=== PATIENT | female | born 1965 | race Caucasian/White ===

== ENCOUNTER → 2016-06-13 | Outpatient (CLI) | payer OTHER ==
[2016-06-13 11:04] LABS: Basophils % (A) 1 %; CH 26.7; CHCM 32.2; Eosinophils # (A) 0.2 k/uL (0-0.7); Eosinophils % (A) 3 %; HCT 43.9 % (34.0-46.0); HDW 2.42; HGB 14.2 gm/dL (11.4-16.0); Luc # (Auto) 0.19; Luc % (Auto) 2; Lymphocytes # (A) 1.4 k/uL (1.0-4.8); Lymphocytes % (A) 17 %; MCH 26.9 pg (25.0-35.0); MCHC 32.3 g/dL (31.0-37.0); MCV 83.3 fL (80.0-100.0); Mean Platelet Volume 8.9; Monocytes # (A) 0.5 k/uL (0-1.0); Monocytes % (A) 6 %; Neutrophils # (A) 5.6 k/uL (1.3-7.7); Neutrophils % (A) 71 %; RBC 5.27 m/uL (3.80-5.40); RDW 13.7 % (11.5-15.5); WBC 7.9 k/uL (3.8-10.6)
== END | disposition home or self-care (01) ==
LOC: LABPAT 10:30
PROVIDERS: ATTEND Anesthesiology
DX: Z01.818 Encounter for other preprocedural examination (principal); E66.01 Morbid (severe) obesity due to excess calories
CPT/HCPCS: 85025; 93005

== ENCOUNTER 2016-06-18 10:58 | Inpatient (IN) | payer OTHER ==
[~2016-06-18 10:58] MED LIST: DEXAMETHASONE SOD PHOSPHATE 10 MG/ML 1 ML VIAL IV ONE; ENOXAPARIN 40 MG/0.4 ML SYRINGE SQ ONE; LIDOCAINE 1% 20 ML VIAL (10MG/ML) FOR IV START INTRADERMA PRN; ONDANSETRON 4 MG/2 ML VIAL IVP ONE; SCOPOLAMINE 1.5MG/72HR PATCH TRANSDERM ONE; ceFAZolin 3 GM in SODIUM CHLORIDE 0.9% 100 ML IVPB ONE
--- NOTE | 2016-06-18 11:12 | P.GSHP ---
History of Present Illness H&P Date: 06/18/16 Chief Complaint: Morbid obesity Patient here today for elective sleeve gastrectomy. She has investigated both lap band and gastric bypass. She has completed her 6 month weight loss supervised program with her primary care physician. She had a previous endoscopy in January. During that upper endoscopy a very small hiatal hernia was seen. Denies dysphagia. No history of DVT in the past. Past Medical History Past Medical History: GERD/Reflux, Hyperlipidemia, Hypertension, Respiratory Disorder Additional Past Medical History / Comment(s): HX OCC ARRYTHMIA IN PAST, NO PROBLEMS FOUND. OCC BRONCHITIS, SEASONAL ALLERGIES. History of Any Multi-Drug Resistant Organisms: None Reported Past Surgical History: Cholecystectomy Additional Past Surgical History / Comment(s): CHOLECYSTECTOMY 1997. SINUS SURGERY D/T DEVIATED SEPTUM 2011. EGD. Past Anesthesia/Blood Transfusion Reactions: No Reported Reaction Past Psychological History: No Psychological Hx Reported Smoking Status: Never smoker Past Alcohol Use History: None Reported Past Drug Use History: None Reported - Past Family History Mother Family Medical History: Blood Disorder, CVA/TIA, Diabetes Mellitus, Hypertension Additional Family Medical History / Comment(s): TYPE 2 DM RESOLVED WITH RNY BYPASS, ATYPICAL HEMOLYTIC UREMIC SYNDROME, Father Family Medical History: Coronary Artery Disease (CAD) Additional Family Medical History / Comment(s): CARDIAC BYPASS IN 2013 (??) Medications and Allergies Home Medications Medication Instructions Recorded Confirmed Type Levonorgestrel-Ethin Estradiol 1 tab PO DAILY 12/13/15 06/11/16 History [Levora-28 Tablet] Loratadine [Claritin] 10 mg PO DAILY 12/13/15 06/11/16 History Metoprolol Succinate [Toprol XL] 50 mg PO DAILY 12/13/15 06/11/16 History Montelukast [Singulair] 10 mg PO HS 12/13/15 06/11/16 History Omeprazole [PriLOSEC] 40 mg PO DAILY 02/01/16 06/11/16 History Calcium 300, Vitamin D3 750, 2 cap PO BID 06/11/16 History Magnesium 60 Mg Multivitamins, Thera [Multivitamin] 1 tab PO DAILY 06/11/16 06/11/16 History Allergies Allergy/AdvReac Type Severity Reaction Status Date / Time levofloxacin [From Levaquin] Allergy Rash/Hives Verified 06/11/16 17:33 Surgical - Exam Physical exam: General: Well-developed, well-nourished HEENT: Normocephalic, sclerae nonicteric Abdomen: Nontender, nondistended Extremities: No edema Neuro: Alert and oriented Assessment and Plan (1) Morbid exogenous obesity Narrative/Plan: We'll proceed with sleeve gastrectomy at this time. Risks of bleeding, infection, stenosis, leak, abscess, fistula formation, chronic reflux, or weight loss, dysphagia, vomiting, MN, PE, DVT, and were discussed. She understands and wishes to proceed. Status: Acute
[2016-06-18] MEDS: LACTATED RINGERS 1,000 ML IV SCH ×2 (11:46→12:11)
[2016-06-18] MEDS ORDERED: METHYLENE BLUE 15 MG in SODIUM CHLORIDE 0.9% 500 ML IRRIGATION ONE (12:05)
[2016-06-18 12:12] LABS: ALT 48 U/L (9-52); AST 34 U/L (14-36); Alkaline Phosphatase 136 U/L (38-126); Anion Gap 8 mmol/L; Blood Urea Nitrogen 9 mg/dL (7-17); Calcium 9.8 mg/dL (8.4-10.2); Carbon Dioxide 24 mmol/L (22-30); Chloride 105 mmol/L (98-107); Glucose 111 mg/dL (74-99); Non-African American GFR(MDRD) >60 (>60 ml/min/1.73 sqM); Potassium 4.5 mmol/L (3.5-5.1); Sodium 137 mmol/L (137-145); Total Bilirubin 0.6 mg/dL (0.2-1.3); Total Protein 7.8 g/dL (6.3-8.2)
[2016-06-18] MEDS ORDERED: NEOSTIGMINE 1 MG/ML 10 ML VIAL ONE (12:16)
[2016-06-18] MEDS ORDERED: ePHEDrine 50 MG/ML 1 ML AMP ONE (12:16)
[2016-06-18] MEDS ORDERED: PHENYLEPHRINE-0.9% NACL SYG 1 MG/10 ML SYRINGE ONE (12:16)
[2016-06-18] MEDS ORDERED: SUCCINYLCHOLINE CHLORIDE 100 MG/5 ML SYR IV ONE (12:16)
[2016-06-18] MEDS ORDERED: ROCURONIUM BROMIDE 10 MG/ML 10 ML VIAL IV ONE (12:16)
[2016-06-18] MEDS ORDERED: LIDOCAINE 1% INJ 10MG/ML (20 ML MDV) ONE (12:16)
[2016-06-18] MEDS ORDERED: fentaNYL (PF) 50 MCG/ML 2 ML AMP ONE (12:16)
[2016-06-18] MEDS ORDERED: MIDAZOLAM 2 MG/2 ML VIAL ONE (12:16)
[2016-06-18] MEDS ORDERED: GLYCOPYRROLATE 0.2 MG/ML 2 ML VIAL ONE (12:16)
[2016-06-18] MEDS ORDERED: PROPOFOL 10 MG/ML 20 ML VIAL IV ONE (12:16)
[2016-06-18] MEDS ORDERED: BUPIVACAIN-EPI 0.25%-1:200,000 30 ML VIAL SQ ONE ×2 (12:56)
[2016-06-18] MEDS ORDERED: LACTATED RINGERS 1,000 ML IV ONE ×2 (13:27)
[2016-06-18] MEDS ORDERED: HYOSCYAMINE ORAL DROPS 1.875 MG/15 ML BOTTLE PO PRN (14:35)
[2016-06-18] MEDS ORDERED: ACETAMINOPHEN IV (For NPO) 1,000 MG in EMPTY BAG 1 BAG IVPB ONE (14:35)
[2016-06-18] MEDS ORDERED: SIMETHICONE 40 MG/0.6 ML DROPS 2,000 MG/30 ML BOTTLE PO PRN (14:35)
[2016-06-18] MEDS ORDERED: diphenhydrAMINE 50 MG/ML 1 ML VIAL IVP PRN (14:35)
[2016-06-18] MEDS ORDERED: NALOXONE 0.4 MG/ML 1 ML VIAL IV PRN (14:35)
--- NOTE | 2016-06-18 14:41 | P.PCN ---
Date of Procedure: 06/18/16 Procedure(s) Performed: PREOPERATIVE DIAGNOSIS: Morbid obesity, hypertension, asthma, GERD POSTOPERATIVE DIAGNOSIS: Same PROCEDURE: Laparoscopic sleeve gastrectomy with repair hiatal hernia SURGEON: Perfecto EBL: Minimal ANESTHESIA: General COMPLICATIONS: None OPERATIVE PROCEDURE: Patient was placed in the operating table in the supine position. She was placed under general anesthesia at that time. The abdomen was prepped and draped in sterile fashion after the patient was placed in lithotomy. A 5 mm optical trocar was used to enter the abdominal cavity in the left upper quadrant. Insufflation took place to 15 millimeters mercury. An additional right subxiphoid 5 mm trocar was then placed under direct relation and then removed. 2 additional 5 mm trochars were placed in the right upper quadrant and left upper quadrant under direct visualization and a 15 mm trocar in the supraumbilical location. The liver was retracted using a medium Sharita liver retractor through the right subxiphoid trocar site. The hiatus was inspected. The patient had a small sized hiatal hernia. Circumferentially the phrenoesophageal ligament was incised identifying the actual defect. The right diaphragmatic crura was well visualized. I was able to bluntly dissect and visualize the left diaphragmatic crura. At that point I moved to the mid aspect of the greater curvature the stomach. The short gastric vasculature was divided using a LigaSure device proximally. I then switched and divided the short gastrics distally to a 3-4 cm from the pylorus. The dissection took place up to the left diaphragmatic crura at that point. The posterior short gastrics were likewise divided using the LigaSure device. Once the stomach was fully mobilized the blunt tipped 40-Kiswahili bougie dilator was advanced into the stomach and advanced all the way to the prepyloric location. A black echelon 60 stapler was utilized and fired tangentially across the antrum taking care to avoid narrowing at the incisura angularis. Subsequent firings of the stapler took place. A total of 5 green echelon 60 staplers with seam guard took place proximally staying on the outer edge of our dilator. Once we reached the most proximal portion of the stomach a single firing of the gold echelon 60 stapler without seen guard took place. This only covered a distance of about 1.5 cm. This portion of the staple line was imbricated using a short running 2-0 strata fix suture the dilator was then removed. The oral gastric tube was reinserted. The stomach was insufflated with approximately 100 mL of methylene blue. No evidence of leak or obstruction was seen. The hiatus was then addressed once again. A single 2-0 Ethibond suture was used to reapproximate the crura posteriorly. This adequately closed the diaphragmatic hernia. Tisseel fibrin glue was then sprayed along the entire length of the staple line. No bleeding was identified. The distal aspect of the sleeve was then reapproximated to the gastrosplenic and gastrocolic ligament using a short running 20 strata fix suture. This was done to prevent kinking or twisting of the sleeve. The stomach remnant was removed from the 15 mm trocar site without difficulty. The fascia at the 15 more site was closed using 3 separate interrupted 0 Vicryl sutures with the laparoscopic suture passer and Gene Carly technique. The insufflation was evacuated. The skin at all 5 incisions were closed using 4-0 Monocryl sutures. Steri-Strips and sterile dressings were then applied. DISPOSITION: Stable to recovery room
[2016-06-18] MEDS: HYDROmorphone 1 MG/ML 1 ML SYRINGE IVP PRN ×3 (14:45→21:35)
[2016-06-18 16:12] VITALS: BMI 48.3
[2016-06-18] MEDS: ALBUTEROL NEBULIZED 2.5 MG/3 ML INHALATION SCH ×2 (17:26→21:32)
[2016-06-18] MEDS: 0.9% NACL WITH KCL 20 MEQ/L 1,000 ML IV SCH ×2 (17:28→23:35)
[2016-06-18] MEDS ORDERED: hydrALAZINE HCL 20 MG/ML 1 ML VIAL IVP PRN (22:33)
[2016-06-19] MEDS: 0.9% NACL WITH KCL 20 MEQ/L 1,000 ML IV SCH ×2 (00:34→07:28)
[2016-06-19] MEDS: HYDROmorphone 1 MG/ML 1 ML SYRINGE IVP PRN ×5 (00:35→12:55)
[2016-06-19 07:05] LABS: Basophils % (A) 0 %; CH 26.4; CHCM 32.1; Eosinophils % (A) 0 %; HCT 40.6 % (34.0-46.0); HDW 2.46; HGB 12.8 gm/dL (11.4-16.0); Luc # (Auto) 0.19; Luc % (Auto) 1; Lymphocytes % (A) 7 %; MCH 26.2 pg (25.0-35.0); MCHC 31.7 g/dL (31.0-37.0); MCV 82.7 fL (80.0-100.0); Mean Platelet Volume 8.5; Monocytes # (A) 0.8 k/uL (0-1.0); Monocytes % (A) 6 %; Neutrophils # (A) 11.5 k/uL (1.3-7.7); Neutrophils % (A) 85 %; RDW 13.8 % (11.5-15.5); WBC 13.5 k/uL (3.8-10.6); WBC (Perox) 13.94
[2016-06-19 07:19] LABS: Anion Gap 11 mmol/L; Blood Urea Nitrogen 8 mg/dL (7-17); Calcium 9.2 mg/dL (8.4-10.2); Carbon Dioxide 22 mmol/L (22-30); Chloride 108 mmol/L (98-107); Magnesium 1.9 mg/dL (1.6-2.3); Non-African American GFR(MDRD) >60 (>60 ml/min/1.73 sqM); Phosphorous 3.5 mg/dL (2.5-4.5); Potassium 4.7 mmol/L (3.5-5.1); Sodium 141 mmol/L (137-145)
[2016-06-19] MEDS: ENOXAPARIN 40 MG/0.4 ML SYRINGE SQ SCH ×2 (07:30→20:30)
[2016-06-19] MEDS: PANTOPRAZOLE 40 MG TABLET PO SCH (07:37)
[2016-06-19] MEDS: ALBUTEROL NEBULIZED 2.5 MG/3 ML INHALATION SCH ×4 (08:56→19:14)
[2016-06-19] MEDS ORDERED: PANTOPRAZOLE 40 MG/10 ML VIAL IV SCH (09:00)
--- NOTE | 2016-06-19 10:18 | FL ---
EXAMINATION TYPE: FL UGI DATE OF EXAM: 06/19/2016 8:50 AM COMPARISON: NONE HISTORY: Status post gastric sleeve TECHNIQUE: A single contrast UGI study is performed. FINDINGS: Internal Security Manager image of the abdomen shows no gross abnormality. Attention directed to the gastroesophageal junction. Postop changes are present. There is no extravas ation. No obstruction to flow. Surgical clips also noted within the right upper quadrant. Basilar ate lectatic changes are present. IMPRESSION: Limited postoperative exam. No complication is evident.
[2016-06-19] MEDS: METOPROLOL SUCCINATE (ER) 50 MG TAB.ER.24H PO SCH (10:31)
[2016-06-19 13:03] LABS: Appearance,Urine Cloudy (Clear); Bacteria,Urine Rare /hpf; Bilirubin,Urine Negative (Negative); Glucose,Urine (UA) Negative (Negative); Ketones,Urine Trace (Negative); Leukocyte Esterase,Urine Moderate (Negative); Mucus,Urine Rare /hpf; Nitrite,Urine Negative (Negative); Particle Count 4559; Protein,Urine Negative (Negative); RBC,Urine 2 /hpf (0-5); Specific Gravity,Urine 1.018 (1.001-1.035); Squamous Epithelial Cell,Urine 10 /hpf (0-4); UA Billing (MACRO vs. MICRO) MICRO; Urobilinogen,Urine <2.0 mg/dL (<2.0); WBC,Urine 21 /hpf (0-5)
--- NOTE | 2016-06-19 13:27 | CONS ---
DATE OF CONSULTATION: Reason for consultation: Advice regarding gastroesophageal reflux disease, hypertension, hyperlipidemia, cholecystectomy requested by Dr. Grove. HISTORY OF PRESENT ILLNESS: This 51-year-old woman with a past medical history of multiple medical problems including hyperlipidemia, hypertension, history of gastroesophageal reflux disease, history of cholecystectomy, underwent laparoscopic sleeve gastrectomy with repair of hiatal hernia for morbid obesity, the patient tolerated the procedure well. There is no history of fever, rigors or chills. No history of headache, loss of consciousness or seizures. PAST MEDICAL HISTORY: History of hypertension, hyperlipidemia, GERD, history of cholecystectomy. Medications prior to admission include home medications: 1. Prilosec 40 mg p.o. daily. 2. Multivitamins one p.o. daily. 3. Singulair 10 mg q.h.s. 4. Toprol XL 50 mg. 5. Claritin 10 mg p.o. daily. 6. Levora 28, 1 p.o. daily. 7. Calcium with vitamin D p.o. 2 capsules p.o. daily. ALLERGIES: LEVAQUIN. FAMILY HISTORY: History of blood disorder, cerebrovascular accident, TIA, diabetes mellitus, hypertension in the family. SOCIAL HISTORY: No history of smoking. No history of alcohol intake. REVIEW OF SYSTEMS: ENT: No diminished hearing. No diminished vision. CARDIOVASCULAR: No angina or palpitations. RESPIRATORY : No cough. GI: As mentioned earlier. GENITOURINARY: No dysuria or retention. CENTRAL NERVOUS SYSTEM: No numbness or weakness. ALLERGY/IMMUNOLOGY: No asthma or hayfever. MUSCULOSKELETAL: As mentioned earlier. HEMATOLOGY/ONCOLOGY: No history of anemia. ENDOCRINE: No history of diabetes, hypothyroidism. CONSTITUTIONAL: As mentioned earlier. DERMATOLOGY: Negative. RHEUMATOLOGY: Negative. PSYCHIATRY: As mentioned earlier. PHYSICAL EXAMINATION: The patient is alert and oriented times three. Pulse 98, blood pressure 131/81, respirations 18, temperature 97.9. Pulse ox 97% on 2 liters. HEENT: Conjunctivae normal. Oral mucosa moist. NECK: No jugular venous distention. No carotid bruit. No lymph node enlargement. CARDIOVASCULAR: S1, S2 muffled. RESPIRATORY: Breath sounds diminished at the bases. No rhonchi. No crackles. ABDOMEN: Soft, status post surgery. Bowel sounds diminished. LEGS: No edema. No swelling. CENTRAL NERVOUS SYSTEM: Higher functions as mentioned earlier. Moves all four limbs. No focal deficits. LYMPHATICS: No lymph nodes palpable in the neck, axillae or groin. SKIN: No ulcer, rash or bleeding. LABS: Glucose 111, alk phos 136. Otherwise, hematology done previously within normal limits. ASSESSMENT: 1. Status post laparoscopic sleeve gastrectomy and repair of hiatal hernia for morbid obesity. 2. Hypertension. 3. Hyperlipidemia. 4. History of arrhythmia in the past. 5. History of gastroesophageal reflux disease. 6. History of cholecystectomy. RECOMMENDATIONS AND DISCUSSION: In this 51 -year-old woman who presented with multiple complex medical issues, we will monitor the patient closely, continue the current medications and continue symptomatic treatment. Vital signs are stable at this time. Recommend to resume the home medications once the patient is p.o. DVT prophylaxis. Incentive spirometry. Will follow the patient closely with you. The patient may be asked to follow up with the primary physician closely after discharge. Thank you, Dr. Grove for letting us participate in the care of this patient.
[2016-06-19] MEDS: 1: MVI, ADULT NO.4 WITH VIT K 10 ML, THIAMINE 100 MG, FOLIC ACID 1 MG, POTASSIUM CHLORID IV SCH ×12 (15:03→22:01)
[2016-06-19] MEDS ORDERED: SODIUM CHLORIDE 0.9% 1,000 ML BAG ONE (15:03)
[2016-06-19] MEDS: HYDROcodone/APAP 5-325MG 1 EACH TAB PO PRN ×2 (16:39→22:02)
--- NOTE | 2016-06-19 19:39 | PN ---
DATE OF SERVICE: 06/19/2016 This 51-year-old woman who was admitted for laparoscopic sleeve gastrectomy is improving significantly. Patient had features of UTI. White count is elevated. No fever. No cough. On exam, alert and oriented x3. Pulse is 88, blood pressure 130/74, respiration 16, temperature 97.4, pulse ox 99% on room air. HEENT: Conjunctivae normal. NECK: No jugular venous distention. CARDIOVASCULAR SYSTEM: S1, S2 muffled. RESPIRATORY SYSTEM: Breath sounds diminished at the bases. No rhonchi. No crackles. ABDOMEN: Soft, nontender. Status post surgery. LEGS: No edema. No swelling. CENTRAL NERVOUS SYSTEM: No focal deficit. LABS: ntd ASSESSMENT: 1. Status post laparoscopic sleeve gastrectomy and repair of hiatal hernia for morbid obesity. 2. Increased white count. 3. Urinary tract infection, present on admission. 4. Hypertension. 5. Hyperlipidemia. 6. History of arrhythmia in the past. 7. History of gastroesophageal reflux disease. 8. History of cholecystectomy. RECOMMENDATIONS AND DISCUSSION: I recommend to continue with the current medications, continue with the monitoring, symptomatic treatment. Otherwise, I recommend a course of antibiotics. Further recommendations to follow. MTDD
[2016-06-19] MEDS ORDERED: MONTELUKAST 10 MG TAB PO SCH (21:00)
--- NOTE | 2016-06-19 21:48 | P.PN ---
Subjective Principal diagnosis: morbid obesity patient complaining of mild nausea and mild abdominal pain today. She has had about 25-30 ounces of liquids thus far. No emesis.today's upper GI shows no evidence of leak or obstruction. White blood cell count 13.5. She had a few episodes of low-grade tachycardia. Objective - Vital Signs Vital signs: Vital Signs Temp 97.3 F L 06/19/16 19:00 Pulse 90 06/19/16 19:26 Resp 16 06/19/16 19:00 BP 144/80 06/19/16 19:00 Pulse Ox 94 L 06/19/16 19:00 Intake & Output 06/19/16 06/19/16 06/20/16 06:59 18:59 06:59 Intake Total 1200 700 450 Balance 1200 700 450 Weight 127.822 kg Intake: IV 1200 700 450 0.9% NaCl with KCl 20 Meq 1200 700 450 /l 1,000 ml @ 150 mls/hr IV .[id number] [facility] Rx#: [id number] Other: Voiding Method Toilet # Voids 1 1 2 - Exam abdomen: Soft, mild periumbilical tenderness, mild incisional tenderness - Labs CBC & Chem 7: 06/19/16 06:46 06/19/16 06:46 Labs: Abnormal Lab Results - Last 24 Hours (Table) 06/19/16 06/19/16 06/19/16 Range/Units 06:46 06:46 12:25 WBC 13.5 H (3.8-10.6) k/uL Neutrophils # 11.5 H (1.3-7.7) k/uL Chloride 108 H (98-107) mmol/L Urine Appearance Cloudy H (Clear) Urine Ketones Trace H (Negative) Urine Blood Trace H (Negative) Ur Leukocyte Esterase Moderate H (Negative) Urine WBC 21 H (0-5) /hpf Ur Squamous Epith Cells 10 H (0-4) /hpf Urine Bacteria Rare H (None) /hpf Urine Mucus Rare H (None) /hpf Assessment and Plan (1) Morbid exogenous obesity Narrative/Plan: continue bariatric clear liquids. Recheck lab work in a.m. Add Toradol for pain control. Minimize narcotic use. Status: Acute
[2016-06-19] MEDS: KETOROLAC 30 MG/ML 1 ML VIAL IVP SCH (23:32)
[2016-06-20] MEDS: KETOROLAC 30 MG/ML 1 ML VIAL IVP SCH ×3 (05:50→17:54)
[2016-06-20 06:52] LABS: Basophils # (A) 0.1 k/uL (0-0.2); Basophils % (A) 1 %; CH 26.4; Eosinophils # (A) 0.3 k/uL (0-0.7); Eosinophils % (A) 3 %; HGB 11.7 gm/dL (11.4-16.0); Luc # (Auto) 0.22; Luc % (Auto) 2; Lymphocytes # (A) 1.4 k/uL (1.0-4.8); Lymphocytes % (A) 14 %; MCH 26.3 pg (25.0-35.0); MCHC 31.7 g/dL (31.0-37.0); Mean Platelet Volume 8.6; Monocytes # (A) 0.7 k/uL (0-1.0); Monocytes % (A) 7 %; Neutrophils # (A) 7.6 k/uL (1.3-7.7); Neutrophils % (A) 74 %; RBC 4.46 m/uL (3.80-5.40); RDW 13.9 % (11.5-15.5); WBC 10.2 k/uL (3.8-10.6); WBC (Perox) 10.76
[2016-06-20 07:03] LABS: Anion Gap 10 mmol/L; Blood Urea Nitrogen 9 mg/dL (7-17); Carbon Dioxide 21 mmol/L (22-30); Chloride 107 mmol/L (98-107); Glucose 97 mg/dL (74-99); Non-African American GFR(MDRD) >60 (>60 ml/min/1.73 sqM); Potassium 4.4 mmol/L (3.5-5.1); Sodium 138 mmol/L (137-145)
[2016-06-20] MEDS: PANTOPRAZOLE 40 MG TABLET PO SCH (07:56)
[2016-06-20] MEDS: ENOXAPARIN 40 MG/0.4 ML SYRINGE SQ SCH (07:56)
[2016-06-20] MEDS: METOPROLOL SUCCINATE (ER) 50 MG TAB.ER.24H PO SCH (07:57)
[2016-06-20] MEDS: ALBUTEROL NEBULIZED 2.5 MG/3 ML INHALATION SCH ×3 (08:44→15:27)
[2016-06-20] MEDS ORDERED: SODIUM CHLORIDE 0.9% 1,000 ML BAG ONE (08:57)
[2016-06-20] MEDS: 1: MVI, ADULT NO.4 WITH VIT K 10 ML, THIAMINE 100 MG, FOLIC ACID 1 MG, POTASSIUM CHLORID IV SCH ×6 (08:57)
--- NOTE | 2016-06-20 11:49 | P.DS ---
Providers Date of admission: 06/18/16 10:58 Expected date of discharge: 06/20/16 Attending physician: Milton Grove Consults: 06/18/16 14:38 Consult Physician Routine Consulting Provider: Arley Mcfadden Consult Reason/Comments: Medical management Do you want consulting provider notified?: Yes Primary care physician: Stated None - Discharge Diagnosis(es) (1) Morbid exogenous obesity Patient a 2 days ago for elective sleeve gastrectomy. Postoperatively the patient has done well with improving liquid intake. She has had about 15 ounces of liquids thus far today. Pain is 1 out of 10. She is ambulate in. Her upper GI shows no evidence of leak or obstruction. Labs from this morning looked normal. Anticipate probable discharge later today with outpatient follow -up in 1 week. Patient's dressings will be changed prior to discharge. Current Visit: Yes Status: Acute Plan - Discharge Summary Discharge Medication List Levonorgestrel-Ethin Estradiol [Levora-28 Tablet] 1 tab PO DAILY 12/13/15 [ History] Loratadine [Claritin] 10 mg PO DAILY 12/13/15 [History] Metoprolol Succinate [Toprol XL] 50 mg PO DAILY 12/13/15 [History] Montelukast [Singulair] 10 mg PO HS 12/13/15 [History] Omeprazole [PriLOSEC] 40 mg PO DAILY 02/01/16 [History] Calcium 300, Vitamin D3 750, Magnesium 60 Mg 2 cap PO BID 06/11/16 [History] Multivitamins, Thera [Multivitamin] 1 tab PO DAILY 06/11/16 [History] Follow up Appointment(s)/Referral(s): [facility] [NON-STAFF] - 06/26/16 2:20 pm
[2016-06-20 14:17] VITALS: BP 156/89; PULSE 97; RESP 17; TEMP 97.7
--- NOTE | 2016-06-20 21:01 | PN ---
DATE OF SERVICE: 06/20/2016 This 51-year-old woman, admitted for laparoscopic sleeve gastrectomy, is improving significantly. No chest pain. No palpitation. No fever. On exam, alert and oriented x3. Pulse 97, blood pressure 156/89, respiration 17, temperature 97.7, pulse ox 94% on room air. HEENT: Conjunctivae normal. NECK: No jugular venous distention. CARDIOVASCULAR SYSTEM: S1, S2 muffled. RESPIRATORY SYSTEM: Breath sounds diminished at the bases. No rhonchi. No crackles. ABDOMEN: Soft. Status post surgery. LEGS: No edema. No swelling. NERVOUS SYSTEM: No focal deficit. LABS: WBC 10.2. UA noted. ASSESSMENT: 1. Status post laparoscopic sleeve gastrectomy and repair of a hiatal hernia for morbid obesity. 2. Increased white count, improved. 3. Urinary tract infection, possibly present on admission. 4. Hypertension. 5. Hyperlipidemia. 6. History of arrhythmia in the past. 7. Gastroesophageal reflux disease. 8. History of cholecystectomy. 9. FULL CODE. RECOMMENDATIONS AND DISCUSSION: I recommend to continue with the current medications, continue with symptomatic treatment, incentive spirometry. Closely follow with the primary physician in the outpatient setting. Rest of the recommendations per Surgery.
== END 2016-06-20 18:33 | disposition home or self-care (01) | DRG 620 ==
LOC: 2ORWHC 10:58 → 3SUR 14:53
PROVIDERS: ADMIT Surgery; ATTEND Surgery
PROC: 0BQS4ZZ (ICD-10-PCS; 2016-06-18)
PROC: 0BQR4ZZ (ICD-10-PCS; 2016-06-18)
PROC: 0DB64Z3 Excision of Stomach, Percutaneous Endoscopic Approach, Vertical (ICD-10-PCS; principal; 2016-06-18 12:00)
DX: E66.01 Morbid (severe) obesity due to excess calories (principal); N39.0 Urinary tract infection, site not specified; I10 Essential (primary) hypertension; K44.9 Diaphragmatic hernia without obstruction or gangrene; E78.5 Hyperlipidemia, unspecified; K21.9 Gastro-esophageal reflux disease without esophagitis; D72.829 Elevated white blood cell count, unspecified; J30.2 Other seasonal allergic rhinitis; R11.0 Nausea; R00.0 Tachycardia, unspecified; Z82.3 Family history of stroke; Z83.3 Family history of diabetes mellitus; Z71.3 Dietary counseling and surveillance; Z82.49 Family history of ischemic heart disease and other diseases of the circulatory system; Z79.899 Other long term (current) drug therapy; Z90.49 Acquired absence of other specified parts of digestive tract; Z88.1 Allergy status to other antibiotic agents; Z87.09 Personal history of other diseases of the respiratory system; Z86.19 Personal history of other infectious and parasitic diseases; Z83.2 Family history of diseases of the blood and blood-forming organs and certain disorders involving the immune mechanism; Z79.3 Long term (current) use of hormonal contraceptives
CPT/HCPCS: 74240; 80048; 80051; 80053; 81001; 81025; 82310; 82565; 83735; 84100; 84520; 85025; 88307; 92950; 94640; 94760; 94762

== ENCOUNTER → 2016-06-26 | Outpatient (CLI) | payer OTHER ==
[2016-06-26 14:45] VITALS: BMI 46.7
[2016-06-26 15:07] VITALS: BP 136/79; PULSE 94; TEMP 97.8
--- NOTE | 2016-06-26 16:18 | P.BASOAP ---
Subjective Principal diagnosis: Morbid obesity Patient doing well today. Adequate weight loss since her surgery last week. No nausea or vomiting. No heartburn. She was feeling some palpitations but that resolved. Heart rate 94. She is afebrile. Adequate oral liquid and protein intake. Objective - Vital Signs Vital signs: Vital Signs Temp 97.8 F 06/26/16 15:04 Pulse 94 06/26/16 15:04 Resp BP 136/79 06/26/16 15:04 Pulse Ox Intake & Output 06/25/16 06/26/16 06/26/16 18:59 06:59 18:59 Weight 123.559 kg - Exam Abdomen: Soft, nontender, nondistended, incisions clean and dry Assessment/Plan (1) Morbid exogenous obesity Narrative/Plan: Continue bariatric liquid diet. Increase activity levels. Follow-up 2 weeks. Plan: Date: 06/26/16 Initial Weight: 127.686 kg Initial BMI: 48.3 Current Weight: 123.559 kg Current BMI: 46.7 Type of Surgery: Total Volume in Band: Previous Volume: Volume Removed: Volume Added: Band Size:
== END | disposition home or self-care (01) ==
LOC: BARWHC3 14:02
PROVIDERS: ATTEND Surgery
DX: Z48.815 Encounter for surgical aftercare following surgery on the digestive system (principal); Z71.3 Dietary counseling and surveillance; E66.01 Morbid (severe) obesity due to excess calories; Z68.42 Body mass index [BMI] 45.0-49.9, adult; Z98.84 Bariatric surgery status
CPT/HCPCS: 99211

== ENCOUNTER → 2016-07-24 | Outpatient (CLI) | payer OTHER ==
[2016-07-24 14:43] VITALS: BP 119/86; PULSE 79; RESP 20; TEMP 98.1; BMI 44.4
--- NOTE | 2016-07-24 15:15 | P.BASOAP ---
Subjective Principal diagnosis: morbid obesity patient doing well today. 14 pound weight loss. no further palpitations. Her heart rate is normal. She is having some heartburn and indigestion at times. She has been taking 2 Prilosec daily. Occasional Zantac as well. Her energy level is improved. Denies dysphagia. No vomiting. She is due for one month lab work. Objective - Vital Signs Vital signs: Vital Signs Temp 98.1 F 07/24/16 14:40 Pulse 79 07/24/16 14:40 Resp 20 07/24/16 14:40 BP 119/86 07/24/16 14:40 Pulse Ox Intake & Output 07/23/16 07/24/16 07/24/16 18:59 06:59 18:59 Weight 117.435 kg - Exam abdomen: Soft, nontender, nondistended Assessment/Plan (1) Morbid exogenous obesity Narrative/Plan: continue dietary and exercise regimen. check one month lab work at this time. prescription for Carafate provided. she will be with the dietitian today. follow up 4-6 weeks. Plan: Date: 07/24/16 Initial Weight: 127.686 kg Initial BMI: 48.3 Current Weight: 117.435 kg Current BMI: 44.4 Type of Surgery: Total Volume in Band: Previous Volume: Volume Removed: Volume Added: Band Size:
[2016-07-24 15:43] LABS: CH 26.9; CHCM 33.3; HCT 41.7 % (34.0-46.0); Large Platelets Flag Slight; MCH 27.3 pg (25.0-35.0); MCHC 33.5 g/dL (31.0-37.0); MCV 81.4 fL (80.0-100.0); Mean Platelet Volume 10.5; RBC 5.12 m/uL (3.80-5.40); RDW 14.1 % (11.5-15.5); WBC 5.9 k/uL (3.8-10.6)
[2016-07-24 15:51] LABS: Iron 42 ug/dL (37-170)
[2016-07-24 15:58] LABS: Prealbumin 23 mg/dL (18-36)
[2016-07-24 16:42] LABS: Vitamin B12 420 pg/mL (239-931)
== END | disposition home or self-care (01) ==
LOC: BARWHC3 13:50
PROVIDERS: ATTEND Surgery
DX: E66.01 Morbid (severe) obesity due to excess calories (principal)
CPT/HCPCS: 36415; 82306; 82607; 83540; 84134; 84425; 85027; 97803; 99211

== ENCOUNTER → 2016-09-11 | Outpatient (CLI) | payer OTHER ==
[2016-09-11 14:00] VITALS: BP 137/79; PULSE 85; RESP 20; TEMP 98.2; BMI 41.0
--- NOTE | 2016-09-11 14:19 | P.PN ---
Subjective Principal diagnosis: Morbid obesity Patient doing well today. Her heartburn is improved. She is still taking PPIs 1-2 times daily in addition to occasional Pepcid. She tried Carafate and tolerated that well. She started her vitamin D and vitamin B-1 just recently. She's had a 20 pound weight loss in the last 6 weeks. She saw dietary today. No abdominal pain. No significant hunger issues. Objective - Vital Signs Vital signs: Vital Signs Temp 98.2 F 09/11/16 13:57 Pulse 85 09/11/16 13:57 Resp 20 09/11/16 13:57 BP 137/79 09/11/16 13:57 Pulse Ox Intake & Output 09/10/16 09/11/16 09/11/16 18:59 06:59 18:59 Weight 108.409 kg - Exam Abdomen: Soft, nontender, nondistended Assessment and Plan (1) Morbid exogenous obesity Narrative/Plan: Continue dietary and exercise regimen. Continue antiacids as prescribed. Check three-month labs next visit. Status: Acute
== END | disposition home or self-care (01) ==
LOC: BARWHC3 13:04
PROVIDERS: ATTEND Surgery
DX: E66.01 Morbid (severe) obesity due to excess calories (principal); Z71.3 Dietary counseling and surveillance; R12 Heartburn; Z79.899 Other long term (current) drug therapy
CPT/HCPCS: 97803; 99211

== ENCOUNTER → 2016-11-06 | Outpatient (CLI) | payer OTHER ==
[2016-11-06 13:24] VITALS: BP 119/72; PULSE 77; TEMP 97.6; BMI 37.8
--- NOTE | 2016-11-06 13:44 | P.BASOAP ---
Subjective Principal diagnosis: Morbid obesity Patient says her heartburn is improved. She has been taking Carafate in addition to her Prilosec. She was thinking about trying apple cider vinegar or possibly aloe. Excellent weight loss. Protein intake approximate 40 g daily. Liquid intake approximately 50-60 ounces per day. She is due for 3 month labs. Objective - Vital Signs Vital signs: Vital Signs Temp 97.6 F 11/06/16 13:16 Pulse 77 11/06/16 13:16 Resp BP 119/72 11/06/16 13:16 Pulse Ox Intake & Output 11/05/16 11/06/16 11/06/16 18:59 06:59 18:59 Weight 100.062 kg - Exam Abdomen: Soft, nontender, nondistended Assessment/Plan (1) Morbid exogenous obesity Narrative/Plan: Continue Prilosec and Carafate. Patient I discussed the options and she plans to try aloe. Improved protein intake. Continue exercise regimen. Follow-up 6 weeks. Will check three-month labs today (behind schedule). Plan: Date: 11/06/16 Initial Weight: 127.686 kg Initial BMI: 48.3 Current Weight: 100.062 kg Current BMI: 37.8 Type of Surgery: Total Volume in Band: Previous Volume: Volume Removed: Volume Added: Band Size:
[2016-11-06 14:28] LABS: CH 27.2; HCT 40.8 % (34.0-46.0); HDW 2.51; HGB 13.4 gm/dL (11.4-16.0); MCH 27.3 pg (25.0-35.0); MCHC 32.9 g/dL (31.0-37.0); MCV 82.9 fL (80.0-100.0); Mean Platelet Volume 9.3; RBC 4.92 m/uL (3.80-5.40); RDW 13.7 % (11.5-15.5); WBC 5.4 k/uL (3.8-10.6)
[2016-11-06 14:40] LABS: ALT 70 U/L (9-52); AST 44 U/L (14-36); Alkaline Phosphatase 128 U/L (38-126); Anion Gap 11 mmol/L; Blood Urea Nitrogen 8 mg/dL (7-17); Calcium 9.5 mg/dL (8.4-10.2); Carbon Dioxide 24 mmol/L (22-30); Chloride 106 mmol/L (98-107); Glucose 103 mg/dL (74-99); Iron 51 ug/dL (37-170); Non-African American GFR(MDRD) >60 (>60 ml/min/1.73 sqM); Potassium 4.2 mmol/L (3.5-5.1); Sodium 141 mmol/L (137-145); Total Bilirubin 0.6 mg/dL (0.2-1.3); Total Protein 6.9 g/dL (6.3-8.2)
[2016-11-06 15:27] LABS: Vitamin B12 282 pg/mL (239-931)
== END | disposition home or self-care (01) ==
LOC: BARWHC3 13:05
PROVIDERS: ATTEND Surgery
DX: E66.01 Morbid (severe) obesity due to excess calories (principal); Z68.37 Body mass index [BMI] 37.0-37.9, adult
CPT/HCPCS: 80053; 82306; 82607; 83540; 84425; 84590; 85027; 97803; 99211

== ENCOUNTER → 2017-01-08 | Outpatient (CLI) | payer OTHER ==
[2017-01-08 13:14] VITALS: BP 127/75; PULSE 78; TEMP 97.4; BMI 35.1
--- NOTE | 2017-01-08 13:38 | P.BASOAP ---
Subjective Progress Note Date: 01/08/17 Principal diagnosis: Morbid obesity Patient doing well today. Her heartburn is improved. She did try the liquid aloe without relief. No longer taking Carafate. Most days she has no heartburn symptoms now. Still losing adequate weight. Better energy. No dysphagia or vomiting. Her labs from last visit were reviewed. Her liver enzymes were slightly elevated. Objective - Vital Signs Vital signs: Vital Signs Temp 97.4 F L 01/08/17 13:12 Pulse 78 01/08/17 13:12 Resp BP 127/75 01/08/17 13:12 Pulse Ox Intake & Output 01/07/17 01/08/17 01/08/17 18:59 06:59 18:59 Weight 92.85 kg - Exam Abdomen: Soft, nontender, nondistended Assessment/Plan (1) Morbid exogenous obesity Narrative/Plan: Patient plans to review her recent elevated liver enzymes with her primary care physician at the time of her next visit date of this month. Continue dietary and exercise regimen. Continue antiacid therapy. Follow-up in 6 weeks and will check 6 month labs at that point. Continue supplemental B1 and vitamin D for now. Plan: Date: 01/08/17 Initial Weight: 127.686 kg Initial BMI: 48.3 Current Weight: 92.85 kg Current BMI: 35.1 Type of Surgery: Total Volume in Band: Previous Volume: Volume Removed: Volume Added: Band Size:
== END | disposition home or self-care (01) ==
LOC: BARWHC3 12:53
PROVIDERS: ATTEND Surgery
DX: E66.01 Morbid (severe) obesity due to excess calories (principal); Z68.35 Body mass index [BMI] 35.0-35.9, adult
CPT/HCPCS: 97803; 99211

== ENCOUNTER → 2017-02-26 | Outpatient (CLI) | payer OTHER ==
[2017-02-26 14:17] VITALS: BP 137/89; PULSE 83; RESP 18; TEMP 97.6; BMI 33.3
--- NOTE | 2017-02-26 14:28 | P.BASOAP ---
Subjective Progress Note Date: 02/26/17 Principal diagnosis: Morbid obesity Patient doing well today. Minimal reflux symptoms. Takes Prilosec daily. 10 pound weight loss since last visit. She is due for 6 month labs. She is taking vitamin D and vitamin B1 supplementation. Her liver enzymes were slightly elevated last evaluation and they were normal preoperatively with the exception of the alkaline phosphatase. Objective - Vital Signs Vital signs: Vital Signs Temp 97.6 F 02/26/17 14:14 Pulse 83 02/26/17 14:14 Resp 18 02/26/17 14:14 BP 137/89 02/26/17 14:14 Pulse Ox Intake & Output 02/25/17 02/26/17 02/26/17 18:59 06:59 18:59 Weight 88.178 kg - Exam Abdomen: Soft, nontender, nondistended Assessment/Plan (1) Morbid exogenous obesity Narrative/Plan: Patient doing well postoperatively. We'll check 6 month labs at this time. Continue dietary and exercise regimen. Continue Prilosec once daily. If the patient's liver enzymes have increased further consider abdominal ultrasound. Follow-up 6 weeks. Plan: Date: 02/26/17 Initial Weight: 127.686 kg Initial BMI: 48.3 Current Weight: 88.178 kg Current BMI: 33.3 Type of Surgery: Total Volume in Band: Previous Volume: Volume Removed: Volume Added: Band Size:
[2017-02-26 15:04] LABS: CH 26.8; CHCM 32.3; HCT 41.8 % (34.0-46.0); HDW 2.52; HGB 13.5 gm/dL (11.4-16.0); MCHC 32.3 g/dL (31.0-37.0); MCV 83.5 fL (80.0-100.0); Mean Platelet Volume 9.1; RDW 13.8 % (11.5-15.5); WBC 5.1 k/uL (3.8-10.6)
[2017-02-26 15:06] LABS: ALT 55 U/L (9-52); AST 37 U/L (14-36); Alkaline Phosphatase 120 U/L (38-126); Anion Gap 8 mmol/L; Blood Urea Nitrogen 9 mg/dL (7-17); Calcium 9.9 mg/dL (8.4-10.2); Carbon Dioxide 27 mmol/L (22-30); Chloride 106 mmol/L (98-107); Glucose 106 mg/dL (74-99); Non-African American GFR(MDRD) >60 (>60 ml/min/1.73 sqM); Potassium 4.4 mmol/L (3.5-5.1); Sodium 141 mmol/L (137-145); Total Bilirubin 0.4 mg/dL (0.2-1.3); Total Protein 7.3 g/dL (6.3-8.2)
== END | disposition home or self-care (01) ==
LOC: BARWHC3 12:55
PROVIDERS: ATTEND Surgery
DX: E66.01 Morbid (severe) obesity due to excess calories (principal); K90.89 Other intestinal malabsorption; E55.9 Vitamin D deficiency, unspecified; Z68.33 Body mass index [BMI] 33.0-33.9, adult; Z79.899 Other long term (current) drug therapy
CPT/HCPCS: 36415; 80053; 82306; 82607; 83540; 84425; 84590; 85027; 99211

== ENCOUNTER → 2017-04-23 | Outpatient (CLI) | payer OTHER ==
[2017-04-23 14:00] VITALS: BP 125/82; PULSE 80; RESP 16; TEMP 98.4; BMI 32.3
--- NOTE | 2017-04-23 14:55 | P.BASOAP ---
Subjective Progress Note Date: 04/23/17 Principal diagnosis: Morbid obesity Patient returns for follow-up visit. Doing well at this time. 6 pound weight loss since last visit. Exercise level decreased. Still taking vitamin D and B1 at this time. Denies reflux. No vomiting. Good restriction. Objective - Vital Signs Vital signs: Vital Signs Temp 98.4 F 04/23/17 13:57 Pulse 80 04/23/17 13:57 Resp 16 04/23/17 13:57 BP 125/82 04/23/17 13:57 Pulse Ox Intake & Output 04/22/17 04/23/17 04/23/17 18:59 06:59 18:59 Weight 85.332 kg - Exam Abdomen: Soft, nontender, nondistended Assessment/Plan (1) Morbid exogenous obesity Narrative/Plan: Patient doing well postoperatively. We'll plan follow-up visit in 6 weeks. Increase exercise level in the meanwhile. Recheck 1 year labs at that time. Plan: Date: 04/23/17 Initial Weight: 127.686 kg Initial BMI: 48.3 Current Weight: 85.332 kg Current BMI: 32.3 Type of Surgery: Total Volume in Band: Previous Volume: Volume Removed: Volume Added: Band Size:
== END | disposition home or self-care (01) ==
LOC: BARWHC3 13:14
PROVIDERS: ATTEND Surgery
DX: Z48.815 Encounter for surgical aftercare following surgery on the digestive system (principal); E66.01 Morbid (severe) obesity due to excess calories; Z68.32 Body mass index [BMI] 32.0-32.9, adult
CPT/HCPCS: 99211

== ENCOUNTER → 2017-06-25 | Outpatient (CLI) | payer OTHER ==
[2017-06-25 13:43] VITALS: BP 105/79; PULSE 85; RESP 16; TEMP 97.9; BMI 31.2
[2017-06-25 14:56] LABS: HCT 42.4 % (34.0-46.0); HGB 14.1 gm/dL (11.4-16.0); MCH 27.3 pg (25.0-35.0); MCHC 33.2 g/dL (31.0-37.0); MCV 82.1 fL (80.0-100.0); Mean Platelet Volume 8.7; Platelet Count 204 k/uL (150-450); RBC 5.16 m/uL (3.80-5.40); RDW 13.1 % (11.5-15.5); WBC 5.8 k/uL (3.8-10.6)
[2017-06-25 14:59] LABS: ALT 40 U/L (9-52); AST 34 U/L (14-36); Albumin 3.9 g/dL (3.5-5.0); Alkaline Phosphatase 117 U/L (38-126); Anion Gap 11 mmol/L; Blood Urea Nitrogen 9 mg/dL (7-17); Calcium 9.8 mg/dL (8.4-10.2); Carbon Dioxide 27 mmol/L (22-30); Chloride 101 mmol/L (98-107); Glucose 85 mg/dL (74-99); Potassium 4.7 mmol/L (3.5-5.1); Sodium 139 mmol/L (137-145); Total Bilirubin 0.5 mg/dL (0.2-1.3); Total Protein 7.1 g/dL (6.3-8.2)
--- NOTE | 2017-06-25 15:41 | P.BASOAP ---
Subjective Progress Note Date: 06/25/17 Principal diagnosis: Morbid obesity Patient returns for one year follow-up. She has lost 6 pounds since her last visit. She is due for one year labs today. She is taking vitamin B1 and vitamin D still at this time. No heartburn. No nausea or vomiting. No pain. Objective - Vital Signs Vital signs: Vital Signs Temp 97.9 F 06/25/17 13:37 Pulse 85 06/25/17 13:37 Resp 16 06/25/17 13:37 BP 105/79 06/25/17 13:37 Pulse Ox Intake & Output 06/24/17 06/25/17 06/25/17 18:59 06:59 18:59 Weight 82.554 kg - Exam Abdomen: Soft, nontender, nondistended Back: Upper mid back with 3 x 4 cm lipomatous mass - Labs CBC & Chem 7: 06/25/17 14:35 06/25/17 14:35 Assessment/Plan (1) Morbid exogenous obesity Narrative/Plan: Patient doing well 1 year post sleeve gastrectomy. We'll check one year labs at this time. Patient also here discussing a lipoma in her upper mid back. She has an appointment for this to be evaluated in my general surgery clinic in July. I did offer surgical excision if she is interested. Plan: Date: 06/25/17 Initial Weight: 127.686 kg Initial BMI: 48.3 Current Weight: 82.554 kg Current BMI: 31.2 Type of Surgery: Total Volume in Band: Previous Volume: Volume Removed: Volume Added: Band Size:
[2017-06-25 19:49] LABS: Vitamin D 25 Hydroxy 54.3 ng/mL (30.0-100.0)
== END | disposition home or self-care (01) ==
LOC: BARWHC3 12:52
PROVIDERS: ATTEND Surgery
DX: E66.01 Morbid (severe) obesity due to excess calories (principal); K90.89 Other intestinal malabsorption; E55.9 Vitamin D deficiency, unspecified; Z98.84 Bariatric surgery status; Z68.31 Body mass index [BMI] 31.0-31.9, adult; Z71.3 Dietary counseling and surveillance
CPT/HCPCS: 80053; 82306; 82607; 83540; 84425; 85027; 97803; 99211

== ENCOUNTER → 2018-07-22 | Outpatient (CLI) | payer OTHER ==
[2018-07-22 13:56] VITALS: BP 117/79; PULSE 88; TEMP 97.9; BMI 33.3
--- NOTE | 2018-07-22 15:42 | P.BASOAP ---
Subjective Progress Note Date: 07/22/18 Principal diagnosis: Morbid obesity Patient returns 2 year postop. Doing well at this time. Has noticed a slight weight gain since last year. She admits to drinking some soda currently. She states her weight has been steady since [place] however. She is still working out 4 times per week. Average caloric intake of about 1500. Taking Prilosec Objective - Vital Signs Vital signs: Vital Signs Temp 97.9 F 07/22/18 13:53 Pulse 88 07/22/18 13:53 Resp BP 117/79 07/22/18 13:53 Pulse Ox Intake & Output 07/21/18 07/22/18 07/22/18 18:59 06:59 18:59 Weight 87.997 kg - Exam Abdomen: Soft, nontender, nondistended Assessment/Plan (1) Morbid exogenous obesity Narrative/Plan: Patient doing well today. Continue PPIs for now. We will check two-year labs. Follow-up 6 months. Plan: Date: 07/22/18 Initial Weight: 127.686 kg Initial BMI: 48.3 Current Weight: 87.997 kg Current BMI: 33.3 Type of Surgery: Total Volume in Band: Previous Volume: Volume Removed: Volume Added: Band Size:
== END ==
LOC: BARWHC3 13:06
PROVIDERS: ATTEND Surgery
DX: E66.01 Morbid (severe) obesity due to excess calories (principal); Z68.33 Body mass index [BMI] 33.0-33.9, adult
CPT/HCPCS: 97803; 99211

== ENCOUNTER → 2018-08-02 | Outpatient (CLI) | payer OTHER ==
[2018-08-02 11:52] LABS: HGB 13.1 gm/dL (11.4-16.0); MCH 27.9 pg (25.0-35.0); MCHC 32.7 g/dL (31.0-37.0); MCV 85.1 fL (80.0-100.0); Mean Platelet Volume 9.1; Platelet Count 203 k/uL (150-450); RBC 4.71 m/uL (3.80-5.40); RDW 14.1 % (11.5-15.5); WBC 5.2 k/uL (3.8-10.6)
[2018-08-02 16:51] LABS: Albumin 3.9 g/dL (3.80-4.90); Albumin/Globulin Ratio 1.63 (1.60-3.17); Anion Gap 4.1 mmol/L (4.00-12.00); Calcium 9.3 mg/dL (8.7-10.3); Carbon Dioxide 28.9 mmol/L (21.6-31.8); Globulin 2.4 g/dL (1.6-3.3); Potassium 4.6 mmol/L (3.5-5.5); Total Bilirubin 0.4 mg/dL (0.2-1.2); Total Protein 6.3 g/dL (6.2-8.2)
[2018-08-02 17:09] LABS: Vitamin D 25 Hydroxy 36.2 ng/mL (30.0-100.0)
[2018-08-02 17:33] LABS: Folate, Serum >24.0 ng/mL
== END | disposition home or self-care (01) ==
LOC: LABWHC1 11:11
PROVIDERS: ATTEND Surgery
DX: E66.01 Morbid (severe) obesity due to excess calories (principal); E55.9 Vitamin D deficiency, unspecified; K90.89 Other intestinal malabsorption
CPT/HCPCS: 36415; 80053; 82306; 82607; 82746; 84425; 85027

== ENCOUNTER → 2019-01-06 | Outpatient (CLI) | payer OTHER ==
[2019-01-06 13:12] VITALS: BP 119/87; PULSE 94; TEMP 98.1; BMI 34.8
--- NOTE | 2019-01-06 21:34 | P.BASOAP ---
Subjective Progress Note Date: 01/06/19 Principal diagnosis: Morbid obesity Patient returns for reevaluation. She is 2.5 years post sleeve gastrectomy. Last seen in June. Patient doing well since last visit. She has had slight weight gain. Denies hunger or eating significant volumes. Describes some mild umbilical discomfort at times. No GERD symptoms while taking her antacids. No vomiting or nausea. Objective - Vital Signs Vital signs: Vital Signs Temp 98.1 F 01/06/19 13:09 Pulse 94 01/06/19 13:09 Resp BP 119/87 01/06/19 13:09 Pulse Ox Intake & Output 01/06/19 01/06/19 01/07/19 06:59 18:59 06:59 Weight 92.079 kg - Exam Abdomen: Soft, nontender, nondistended Assessment/Plan (1) Morbid exogenous obesity Narrative/Plan: Continue antacid therapy for reflux symptoms and prevention. Continue dietary and exercise regimen. Patient will come to the upcoming support remaining. Follow-up in May. Plan: Date: 01/06/19 Initial Weight: 127.686 kg Initial BMI: 48.3 Current Weight: 92.079 kg Current BMI: 34.8 Type of Surgery: Total Volume in Band: Previous Volume: Volume Removed: Volume Added: Band Size:
== END | disposition home or self-care (01) ==
LOC: BARWHC3 12:45
PROVIDERS: ATTEND Surgery
DX: Z48.815 Encounter for surgical aftercare following surgery on the digestive system (principal); E66.01 Morbid (severe) obesity due to excess calories; Z68.34 Body mass index [BMI] 34.0-34.9, adult; Z79.899 Other long term (current) drug therapy
CPT/HCPCS: 99211

== ENCOUNTER → 2019-10-13 | Outpatient (CLI) | payer OTHER ==
[2019-10-13 14:40] LABS: HCT 39.8 % (34.0-46.0); HGB 13.1 gm/dL (11.4-16.0); MCH 28.5 pg (25.0-35.0); MCHC 32.9 g/dL (31.0-37.0); MCV 86.8 fL (80.0-100.0); Mean Platelet Volume 10.2; Platelet Count 190 k/uL (150-450); RBC 4.59 m/uL (3.80-5.40); RDW 13.1 % (11.5-15.5); WBC 6.6 k/uL (3.8-10.6)
--- NOTE | 2019-10-13 16:44 | P.BASOAP ---
Subjective Progress Note Date: 10/13/19 Principal diagnosis: Morbid obesity Patient underwent sleeve gastrectomy May 2016. Last seen in December of last year. She did gain some weight recently. She started to drink pop once again. Complains of minimal heartburn. Takes her antiacids every other day. Patient has not been exercising recently. Complaining of lipoma mid back. Says she is making better choices over the last few weeks. Objective - Exam Abdomen: Soft, nontender, nondistended - Labs CBC & Chem 7: 10/13/19 14:25 Assessment/Plan (1) Morbid exogenous obesity Narrative/Plan: Patient doing fairly well. She did gain 13 pounds since her last visit. Will check annual labs at this time. Patient to improve her dietary and exercise regimen. Follow-up 6 months. Patient will call office to schedule lipoma excision. Plan: Date: Initial Weight: 127.686 kg Initial BMI: Current Weight: Current BMI: Type of Surgery: Total Volume in Band: Previous Volume: Volume Removed: Volume Added: Band Size:
[2019-10-14 01:35] LABS: ALT 36 U/L (8-44); AST 34 U/L (13-35); African American GFR (CKD) 115.5 (60.0-200.0); Alkaline Phosphatase 101 U/L (41-126); BUN/Creat Ratio 11.43 Ratio (12.00-20.00); Calcium 8.9 mg/dL (8.7-10.3); Carbon Dioxide 23.5 mmol/L (21.6-31.8); Chloride 108 mmol/L (96-109); Globulin 2.6 g/dL (1.6-3.3); Glucose 88 mg/dL (70-110); Iron 66 ug/dL (50-170); Non-African American GFR(CKD) 99.6 (60.0-200.0); Potassium 3.8 mmol/L (3.5-5.5); Sodium 140 mmol/L (135-145); Total Bilirubin 0.4 mg/dL (0.2-1.2); Total Protein 6.5 g/dL (6.2-8.2)
[2019-10-14 01:56] LABS: Folate, Serum >24.0 ng/mL
[2019-10-14 08:46] VITALS: BP 129/79; PULSE 70; TEMP 98.2; BMI 37.0
== END | disposition home or self-care (01) ==
LOC: BARWHC3 12:39
PROVIDERS: ATTEND Surgery
DX: Z48.815 Encounter for surgical aftercare following surgery on the digestive system (principal); Z98.84 Bariatric surgery status; K90.89 Other intestinal malabsorption; E55.9 Vitamin D deficiency, unspecified
CPT/HCPCS: 80053; 82306; 82607; 82746; 83540; 84425; 85027; 99211

== ENCOUNTER → 2023-07-05 | Outpatient (CLI) | payer BC ==
--- NOTE | 2023-07-05 16:34 | CT ---
EXAMINATION TYPE: CT soft tissue neck w con DATE OF EXAM: 07/05/2023 COMPARISON: None HISTORY: chronic sialoadentitis CT DLP: 566 mGycm CONTRAST: Patient injected with 100 mL of Isovue 300. TECHNIQUE: Axial images at 3 mm thick sections. Reconstructed images in the coronal plane and sagitt al plane are reviewed. FINDINGS: Limited CT sections are obtained the lung apices. The lung apices appear clear. CT neck: The torus tubarius and fossa of Rosenmuller are normal. Police [employer]et spaces are normal. Para nasal sinuses and mastoid air cells are clear. Parotid glands appear normal and symmetrical. Submandibular glands, are normal. No salivary duct or gland calcifications identified. Parapharyngeal spaces are normal. No suspicious adenopathy is evident. The hypopharynx appears within normal limits. Vocal cord level appear symmetrical. Thyroid as visualized is normal. Subglottic airway appears unremarkable. Osseous structures are normal. IMPRESSION: 1. No suspicious abnormality soft tissue neck CT
== END | disposition home or self-care (01) ==
LOC: RADCTMAIN 11:16
PROVIDERS: ATTEND Otolaryngology
DX: K11.23 Chronic sialoadenitis (principal)
CPT/HCPCS: 70491; Q9967

== ENCOUNTER → 2023-10-05 | Outpatient (CLI) | payer BC ==
[2023-10-05 12:41] LABS: HGB 13.8 g/dL (12.0-15.0); MCH 27.7 pg (27.0-32.0); MCHC 32.1 g/dL (32.0-37.0); MCV 86.3 FL (80.0-97.0); Mean Platelet Volume 12.2 FL (9.5-12.2); NRBC Per 100 WBC 0 X 10*3/uL (0.00-0.01); Platelet Count 181 X 10*3/uL (140-440); RBC 4.98 X 10*6/uL (4.10-5.20); RDW 13.8 % (11.5-14.5); WBC 5.83 X 10*3/uL (4.50-10.00)
[2023-10-05 12:51] LABS: ALT 27 U/L (8-44); AST 27 U/L (13-35); Albumin 4.2 g/dL (3.8-4.9); Albumin/Globulin Ratio 1.68 Ratio (1.60-3.17); Alkaline Phosphatase 155 U/L (41-126); BUN/Creat Ratio 15.43 Ratio (12.00-20.00); Blood Urea Nitrogen 10.8 mg/dL (9.0-27.0); Calcium 9.6 mg/dL (8.7-10.3); Carbon Dioxide 27.9 mmol/L (21.6-31.8); Chloride 103 mmol/L (96-109); Chol/HDL Ratio 3.03 Ratio; Globulin 2.5 g/dL (1.6-3.3); Glucose 94 mg/dL (70-110); LDL Cholesterol,Calculated 119.2 mg/dL (0.0-131.0); Potassium 4.4 mmol/L (3.5-5.5); Sodium 140 mmol/L (135-145); Total Bilirubin 0.3 mg/dL (0.3-1.2); Total Protein 6.7 g/dL (6.2-8.2)
== END | disposition home or self-care (01) ==
LOC: LABWHC1 09:40
PROVIDERS: ATTEND Nurse Practitioner Family
DX: Z00.00 Encounter for general adult medical examination without abnormal findings (principal); Z13.1 Encounter for screening for diabetes mellitus; E78.00 Pure hypercholesterolemia, unspecified
CPT/HCPCS: 36415; 80053; 80061; 85027

== ENCOUNTER → 2023-11-05 | Outpatient (CLI) | payer BC ==
--- NOTE | 2023-12-03 09:07 | MM ---
Reason for Exam: Screening (asymptomatic). Risk Values: Mya 5 year model risk: 0.8%. NCI Lifetime model risk: 5.3%. Tissue Density: The breasts are almost entirely fatty. Findings: Analyzed By CAD. Right breast: There is no suspicious group of microcalcifications or new suspicious mass. Left breast: There is no suspicious group of microcalcifications or new suspicious mass. Overall Assessment: Negative, BI-RAD 1 Management: Screening Mammogram of both breasts in [address] [facility] will attempt to contact patient to return for supplemental views and ultrasound if indicated. Patient should continue monthly self-breast exams. A clinical breast exam by your physician is recommended on an annual basis. This exam should not preclude additional follow-up of suspicious palpable abnormalities. Note on Mya scores and lifetime risk: 1. A Mya score greater than 3% is considered moderate risk. If this is the case, consider specialist referral to assess eligibility for a risk reducing agent. 2. If overall lifetime risk for the development of breast cancer is 20% or higher, the patient may qualify for future screening with alternating mammogram and breast MRI. Electronically signed and approved by: Adam Mcgee DO
== END | disposition home or self-care (01) ==
LOC: RADMAMWWP 11:41
PROVIDERS: ATTEND Family Medicine
DX: Z12.31 Encounter for screening mammogram for malignant neoplasm of breast (principal)
CPT/HCPCS: 77063; 77067

== ENCOUNTER → 2024-09-18 | Outpatient (CLI) | payer BC ==
[2024-09-18 15:48] LABS: Basophils # (A) 0.07 X 10*3/uL (0.00-0.10); Eosinophils # (A) 0.26 X 10*3/uL (0.04-0.35); Eosinophils % (A) 3.9 %; HCT 43.2 % (37.2-46.3); HGB 13.6 g/dL (12.0-15.0); Lymphocytes # (A) 1.44 X 10*3/uL (0.90-5.00); Lymphocytes % (A) 21.5 %; MCH 27.1 pg (27.0-32.0); MCHC 31.5 g/dL (32.0-37.0); MCV 86.1 FL (80.0-97.0); Mean Platelet Volume 12.2 FL (9.5-12.2); Monocytes # (A) 0.66 X 10*3/uL (0.20-1.00); Monocytes % (A) 9.9 %; NRBC Per 100 WBC 0 X 10*3/uL (0.00-0.01); Neutrophils # (A) 4.24 X 10*3/uL (1.80-7.70); Neutrophils % (A) 63.4 %; Platelet Count 199 X 10*3/uL (140-440); RBC 5.02 X 10*6/uL (4.10-5.20); RDW 13.5 % (11.5-14.5); WBC 6.69 X 10*3/uL (4.50-10.00)
[2024-09-18 16:09] LABS: Chol/HDL Ratio 2.96 Ratio
[2024-09-18 16:10] LABS: ALT 22 U/L (8-44); AST 26 U/L (13-35); Albumin/Globulin Ratio 1.43 Ratio (1.60-3.17); Alkaline Phosphatase 146 U/L (41-126); BUN/Creat Ratio 21.17 Ratio (12.00-20.00); Blood Urea Nitrogen 12.7 mg/dL (9.0-27.0); Calcium 9.7 mg/dL (8.7-10.3); Chloride 113 mmol/L (96-109); Globulin 2.8 g/dL (1.6-3.3); Glucose 87 mg/dL (70-110); LDL Cholesterol,Calculated 117.8 mg/dL (0.0-131.0); Potassium 4.3 mmol/L (3.5-5.5); Sodium 152 mmol/L (135-145); Total Bilirubin 0.4 mg/dL (0.3-1.2); Total Protein 6.8 g/dL (6.2-8.2)
[2024-09-18 16:18] LABS: Follicle Stimulating Hormone 39.8 mIU/mL; Luteinizing Hormone 22.3 mIU/mL; Testosterone <10.00 ng/dL (7.00-45.62)
[2024-09-18 16:56] LABS: Hepatitis C IgG Antibody Nonreactive (Nonreactive)
[2024-09-18 17:07] LABS: Hepatitis B Surface AB- Quant 3.5 mIU/mL
== END | disposition home or self-care (01) ==
LOC: LABWHC1 11:25
PROVIDERS: ATTEND Internal Medicine
DX: Z00.00 Encounter for general adult medical examination without abnormal findings (principal); R61 Generalized hyperhidrosis; Z86.39 Personal history of other endocrine, nutritional and metabolic disease
CPT/HCPCS: 36415; 80053; 80061; 82671; 83001; 83002; 84144; 84146; 84403; 84443; 85025; 86706; 86803